=== PATIENT | male | born 1975 | race Caucasian/White ===

== ENCOUNTER 2016-07-27 18:34 | Inpatient (IN) | payer SELFPAY ==
[~2016-07-27] VITALS: Ht 182.9 cm; Wt 107.0 kg
[2016-07-27 18:56] LABS: GLUCOSE,POINT OF CARE 88 MG/DL (70-110)
[2016-07-27] MEDS ORDERED: SODIUM CHLORIDE 0.9% 1,000 ML IV ONE (19:15)
[2016-07-27] MEDS ORDERED: LORazepam 2 MG/ML VIAL IM ONE ×2 (19:15→21:45)
[2016-07-27] MEDS ORDERED: LORazepam 2 MG/ML VIAL IVP ONE (19:15)
[2016-07-27 20:11] LABS: ADD UA MICROSCOPIC YES; APPEARANCE,URINE CLOUDY (CLEAR); GLUCOSE, URINE (UA) NEGATIVE (NEGATIVE); KETONES,URINE NEGATIVE (NEGATIVE); LEUKOCYTE ESTERASE ,URINE NEGATIVE (NEGATIVE); OCCULT BLOOD,URINE MODERATE (NEGATIVE); PH,URINE 5.5 (5.0-8.0); PROTEIN,URINE POS 1+ (NEGATIVE)
[2016-07-27 20:15] LABS: RBC,URINE 26-50 /HPF (0-2); SQUAMOUS EPITHELIAL CELL,UR Few /LPF (None Seen)
[2016-07-27] MEDS ORDERED: KETAMINE HCL 50 MG/ML 10 ML VIAL IM ONE (20:15)
[2016-07-27] MEDS ORDERED: DiphenhydrAMINE HCL 50 MG/ML VIAL IM ONE (21:45)
[2016-07-27] MEDS ORDERED: HALOPERIDOL LACTATE 5 MG/ML VIAL IM ONE (21:45)
[2016-07-27] MEDS ORDERED: LORazepam 2 MG TABLET PO PRN (22:15)
[2016-07-27] MEDS ORDERED: ZOLPIDEM TARTRATE 10 MG TABLET PO PRN (22:15)
[2016-07-27] MEDS ORDERED: HALOPERIDOL 5 MG TABLET PO PRN (22:15)
[2016-07-27 23:01] LABS: BASOPHILS # (AUTO) 0.04 K/uL (0.00-0.20); BASOPHILS % (AUTO) 0.2 % (0.0-2.0); EOSINOPHILS # (AUTO) 0.01 K/uL (0.00-0.70); EOSINOPHILS % (AUTO) 0.06 % (1.0-6.0); HEMATOCRIT 42.9 % (41-53); HEMOGLOBIN 14.3 g/dL (13.5-17.5); LYMPHOCYTES # (AUTO) 1.1 K/uL (1.0-4.8); LYMPHOCYTES % (AUTO) 5.8 % (22.0-44.0); MEAN CORPUSCULAR HEMOGLOBIN 28.4 pg (26.0-34.0); MEAN CORPUSCULAR HGB CONC 33.4 G/dL (31.0-37.0); MEAN CORPUSCULAR VOLUME 85 fL (80-100); MONOCYTES # (AUTO) 0.8 K/uL (0.1-1.0); MONOCYTES % (AUTO) 4.2 % (2.0-9.0); NEUTROPHILS # (AUTO) 16.3 K/uL (1.8-7.7); PLATELET COUNT (AUTO) 222 K/uL (150-450); RED BLOOD CELL COUNT(AUTO) 5.04 MIL/uL (4.50-5.90); RED CELL DISTRIBUTION WIDTH 13.4 % (11.5-14.5); WHITE BLOOD COUNT (AUTO) 18.1 K/uL (4.5-11.0)
[2016-07-27 23:02] LABS: NEUTROPHILS % (AUTO) 89.8 % (40.0-70.0)
[2016-07-27 23:07] LABS: ANION GAP 11 mmol/L (8-16); CALCIUM, TOTAL 8.9 mg/dL (8.8-10.5); CARBON DIOXIDE 27 mmol/L (22-29); CHLORIDE 106 mmol/L (98-107); GLOMERULAR FILTR. RATE CALC 52 mL/min (>60); POTASSIUM 3.4 mmol/L (3.5-5.1); SODIUM SERUM 144 mmol/L (136-145); UREA NITROGEN, BLOOD 13 mg/dL (7-18)
[2016-07-27 23:13] LABS: ALANINE AMINOTRANSFERASE 19 U/L (12-78); ALBUMIN 3.7 g/dL (3.4-5.0); ASPARTATE AMINOTRANSFERASE 28 U/L (15-37); BILIRUBIN,TOTAL 0.6 mg/dL (0.1-1.0); TOTAL PROTEIN, SERUM 6.9 g/dL (6.4-8.2)
[2016-07-27 23:16] LABS: LITHIUM < 0.20 mmol/L (0.60-1.20)
[2016-07-27 23:17] LABS: ACETAMINOPHEN < 2 mcg/mL (10-30)
[2016-07-27 23:23] LABS: SALICYLATE < 2.8 mg/dL (2.8-20.0)
[2016-07-27 23:24] LABS: RBC MORPHOLOGY COMMENT NORMAL RBC MORPH
[2016-07-28 11:50] VITALS: BP 148/90
[2016-07-28] MEDS ORDERED: INFLUENZA VIRUS VACCINE QVS 2016-17 (3YR+)/PF 60 MCG/0.5 ML SYRINGE IM ONE (12:45)
[2016-07-28] MEDS ORDERED: POTASSIUM CHLORIDE 20 MEQ ER TABLET PO ONE (14:00)
[2016-07-28 16:00] VITALS: BP 135/77
[2016-07-28] MEDS: COLLOIDAL OATMEAL/DIMETH 227 GM LOTION TP SCH (17:03)
[2016-07-28] MEDS: CIPROFLOXACIN HCL 500 MG TABLET PO SCH (19:45)
[2016-07-28] MEDS ORDERED: ACETAMINOPHEN 325 MG TABLET PO PRN (23:15)
[2016-07-28] MEDS ORDERED: IBUPROFEN 400 MG TABLET PO PRN (23:15)
[2016-07-29 07:09] VITALS: BP 129/83
[2016-07-29] MEDS: AmLODIPine BESYLATE 2.5 MG TABLET PO SCH (09:00)
[2016-07-29] MEDS: CIPROFLOXACIN HCL 500 MG TABLET PO SCH ×2 (09:00→17:00)
[2016-07-29] MEDS: COLLOIDAL OATMEAL/DIMETH 227 GM LOTION TP SCH ×2 (09:49→17:00)
[2016-07-29 09:54] VITALS: BP 117/63
[2016-07-29 16:00] VITALS: BP 104/85
[2016-07-30 06:55] VITALS: BP 122/78
[2016-07-30 08:12] VITALS: BP 131/76
[2016-07-30] MEDS: CIPROFLOXACIN HCL 500 MG TABLET PO SCH (08:45)
[2016-07-30] MEDS: COLLOIDAL OATMEAL/DIMETH 227 GM LOTION TP SCH (08:45)
[2016-07-30] MEDS: AmLODIPine BESYLATE 2.5 MG TABLET PO SCH (08:45)
[2016-07-30] MEDS ORDERED: CIPR500S4 PO (13:39)
[2016-07-30] MEDS ORDERED: AMLO2.5T PO (13:40)
== END 2016-07-30 15:08 | disposition home or self-care (01) | DRG 885 ==
LOC: EMS 18:36 → EEVIPCON 18:36 → B3A 07-28 10:12
PROVIDERS: ADMIT Psychiatry & Neurology Child & Adolescent Psychiatry; ATTEND Psychiatry & Neurology Child & Adolescent Psychiatry
DX: F29 Unspecified psychosis not due to a substance or known physiological condition (principal); R45.851 Suicidal ideations; N39.0 Urinary tract infection, site not specified; L40.9 Psoriasis, unspecified; I10 Essential (primary) hypertension; E87.6 Hypokalemia; M10.9 Gout, unspecified; F17.200 Nicotine dependence, unspecified, uncomplicated; F15.10 Other stimulant abuse, uncomplicated; F12.90 Cannabis use, unspecified, uncomplicated; Z28.21 Immunization not carried out because of patient refusal; Z78.1 Physical restraint status; Z71.51 Drug abuse counseling and surveillance of drug abuser; Z71.6 Tobacco abuse counseling
CPT/HCPCS: 51702; 82962; 90471; 93005; 96360; 96361; 96372; 99285; 99406; G0480; G0481; J1200; J1630; J2060; J3490; J7030